=== PATIENT | female | born 1980 | race African-American/Black ===

== ENCOUNTER → 2016-10-13 | Day surgery (SDC) | payer BC ==
[~2016-10-13] MED LIST: FENTANYL PF 100 MCG/2 ML VIAL. ONE; IV RINGERS,LACTATED 1000ML 1,000 ML IV SCH; LIDOCAINE 2% PF Vial for OR 5 ML VIAL. ONE; PROPOFOL 20 ML IV ONE
[2016-10-13 06:58] LABS: NEG OBC UR NEG; POS OBC UR POS
[2016-10-13 07:45] VITALS: BP 132/86
== END | disposition home or self-care (01) ==
LOC: ENDOS 06:08
PROVIDERS: ATTEND Internal Medicine Gastroenterology
DX: K22.2 Esophageal obstruction (principal); K29.50 Unspecified chronic gastritis without bleeding; K21.9 Gastro-esophageal reflux disease without esophagitis; M19.90 Unspecified osteoarthritis, unspecified site; F32.9 Major depressive disorder, single episode, unspecified; Z72.89 Other problems related to lifestyle; Z96.60 Presence of unspecified orthopedic joint implant; Z87.39 Personal history of other diseases of the musculoskeletal system and connective tissue
CPT/HCPCS: 43235; 43450; 81025; J2704; J3010

== ENCOUNTER 2017-02-24 18:10 | Emergency (ER) | payer BC ==
[~2017-02-24] VITALS: Ht 165.1 cm; Wt 86.2 kg
[2017-02-24] MEDS ORDERED: IV NORMAL SALINE 1000ML BAG 1,000 ML IV SCH (18:54)
[2017-02-24] MEDS ORDERED: ONDANSETRON PF 4 MG/2 ML VIAL. IV ONE (19:00)
[2017-02-24 19:09] LABS: BASO % 1 % (0-3); EOS % 1 % (0-3); HEMATOCRIT 36.5 % (36.0-47.0); HEMOGLOBIN 12.2 g/dL (12.0-15.5); LYMPH # 3.1 x10^3/uL (1.0-4.8); LYMPH % 49 % (24-48); MEAN CORPUSCULAR HEMOGLOBIN 29 pg (25-35); MEAN CORPUSCULAR HGB CONC 34 g/dL (31-37); MEAN CORPUSCULAR VOLUME 86 fL (79-100); MONO % 11 % (0-9); NEUT % 38 % (31-73); PLATELET COUNT 258 x10^3/uL (140-400); RED BLOOD COUNT 4.24 x10^6/uL (3.50-5.40); RED CELL DISTRIBUTION WIDTH 14.7 % (11.5-14.5); WHITE BLOOD COUNT 6.3 x10^3/uL (4.0-11.0)
--- NOTE | 2017-02-24 19:12 | PHYS DOC ---
Past Medical History Past Medical History: No Pertinent History Past Surgical History: Other Additional Past Surgical Histo: right shoulder Alcohol Use: Occasionally Drug Use: None Adult General Chief Complaint Chief Complaint: DIZZY/LIGHT HEADED HPI HPI Patient is a 36 year old female who presents with complaint of dizziness and syncopal episode that took place prior to arrival. Patient states that she has been having trouble with coughing in the middle the night which has caused her to become lightheaded at times. Patient denies any history of known heart or lung problems. Patient does have history of acid reflux and is on Prilosec. Patient does admit that her symptoms have been worsening over the past several weeks. Patient denies any recent fever or illness. Patient states that earlier today she started having dizziness and felt like she is going to pass out. Patient states that she may have lost consciousness for "one or 2 seconds." Patient denies any injuries as a result of this episode. This episode made her very scared which is why she came to the emergency department for evaluation. Patient denies any associated substernal chest pain with these episodes. Review of Systems Review of Systems Constitutional: Denies fever or chills [] Eyes: Denies change in visual acuity, redness, or eye pain [] HENT: Denies nasal congestion or sore throat [] Respiratory: Cough [] Cardiovascular: Syncope, denies chest pain [] GI: Denies abdominal pain, nausea, vomiting, bloody stools or diarrhea [] : Denies dysuria or hematuria [] Musculoskeletal: Denies back pain or joint pain [] Integument: Denies rash or skin lesions [] Neurologic: Dizziness, denies headache, focal weakness or sensory changes [] Current Medications Current Medications Current Medications Medications (Trade) Dose Ordered Sig/[facility] Start Time Stop Time Status Last Admin Dose Admin Diazepam (Valium) 2 mg 1X ONCE 02/24/17 19:15 02/24/17 19:16 DC 02/24/17 19:26 2 MG Ondansetron HCl (Zofran) 4 mg 1X ONCE 02/24/17 19:00 02/24/17 19:06 DC 02/24/17 19:24 4 MG Sodium Chloride 1,000 ml @ 1,000 mls/hr Q1H 02/24/17 18:54 02/24/17 19:53 DC 02/24/17 19:26 1,000 MLS/HR Allergies Allergies Allergies Coded Allergies Type Severity Reaction Last Updated Verified No Known Drug Allergies 10/13/16 No Physical Exam Physical Exam Constitutional: Alert, afebrile, no acute distress. [] HENT: Normocephalic, atraumatic, bilateral external ears normal, oropharynx moist, no oral exudates, nose normal. [] Eyes: PERRLA, EOMI, conjunctiva normal, no discharge. [] Neck: Normal range of motion, no tenderness, supple, no stridor. [] Cardiovascular:Heart rate regular rhythm, no murmur [] Lungs & Thorax: Bilateral breath sounds clear to auscultation [] Abdomen: Bowel sounds normal, soft, no tenderness, no masses, no pulsatile masses. [] Skin: Warm, dry, no erythema, no rash. [] Back: No tenderness, no CVA tenderness. [] Extremities: No tenderness, no cyanosis, no clubbing, ROM intact, no edema. [] Neurologic: Alert and oriented X 3, normal motor function, normal sensory function, no focal deficits noted. [] Current Patient Data Vital Signs Vital Signs Date Time Temp Pulse Resp B/P (MAP) Pulse Ox O2 Delivery O2 Flow Rate FiO2 02/24/17 20:30 70 150/81 (104) 100 Room Air 02/24/17 20:00 17 02/24/17 18:25 98.4 98.4 Lab Values Laboratory Tests Test 02/24/17 18:51 02/24/17 19:20 White Blood Count 6.3 x10^3/uL (4.0-11.0) Red Blood Count 4.24 x10^6/uL (3.50-5.40) Hemoglobin 12.2 g/dL (12.0-15.5) Hematocrit 36.5 % (36.0-47.0) Mean Corpuscular Volume 86 fL (79-100) Mean Corpuscular Hemoglobin 29 pg (25-35) Mean Corpuscular Hemoglobin Concent 34 g/dL (31-37) Red Cell Distribution Width 14.7 % (11.5-14.5) H Platelet Count 258 x10^3/uL (140-400) Neutrophils (%) (Auto) 38 % (31-73) Lymphocytes (%) (Auto) 49 % (24-48) H Monocytes (%) (Auto) 11 % (0-9) H Eosinophils (%) (Auto) 1 % (0-3) Basophils (%) (Auto) 1 % (0-3) Neutrophils # (Auto) 2.4 x10^3uL (1.8-7.7) Lymphocytes # (Auto) 3.1 x10^3/uL (1.0-4.8) Monocytes # (Auto) 0.7 x10^3/uL (0.0-1.1) Eosinophils # (Auto) 0.1 x10^3/uL (0.0-0.7) Basophils # (Auto) 0.0 x10^3/uL (0.0-0.2) Sodium Level 142 mmol/L (136-145) Potassium Level 3.7 mmol/L (3.5-5.1) Chloride Level 105 mmol/L (98-107) Carbon Dioxide Level 28 mmol/L (21-32) Anion Gap 9 (6-14) Blood Urea Nitrogen 15 mg/dL (7-20) Creatinine 0.9 mg/dL (0.6-1.0) Estimated GFR (Cockcroft-Gault) 85.7 BUN/Creatinine Ratio 17 (6-20) Glucose Level 84 mg/dL (70-99) Calcium Level 9.4 mg/dL (8.5-10.1) Total Bilirubin 0.4 mg/dL (0.2-1.0) Aspartate Amino Transferase (AST) 20 U/L (15-37) Alanine Aminotransferase (ALT) 26 U/L (14-59) Alkaline Phosphatase 75 U/L (46-116) Creatine Kinase 200 U/L (26-192) H Creatine Kinase MB (Mass) 0.8 ng/mL (0.0-3.6) Creatine Kinase MB Relative Index 0.4 % (0-4) Troponin I Quantitative < 0.017 ng/mL (0.000-0.055) Total Protein 8.1 g/dL (6.4-8.2) Albumin 3.7 g/dL (3.4-5.0) Albumin/Globulin Ratio 0.8 (1.0-1.7) L Urine Collection Type Unknown Urine Color Yellow Urine Clarity Clear Urine pH 6.0 Urine Specific [place] >=1.030 Urine Protein Negative mg/dL (NEG-TRACE) Urine Glucose (UA) Negative mg/dL (NEG) Urine Ketones (Stick) Negative mg/dL (NEG) Urine Blood Small (NEG) Urine Nitrite Negative (NEG) Urine Bilirubin Negative (NEG) Urine Urobilinogen Dipstick 0.2 mg/dL (0.2 mg/dL) Urine Leukocyte Esterase Negative (NEG) Urine RBC 11-20 /HPF (0-2) Urine WBC Occ /HPF (0-4) Urine Squamous Epithelial Cells Few /LPF Urine Bacteria Few /HPF (0-FEW) Urine Mucus Marked /LPF Urine Opiates Screen Neg (NEG) Urine Methadone Screen Neg (NEG) Urine Barbiturates Neg (NEG) Urine Phencyclidine Screen Neg (NEG) Urine Amphetamine/Methamphetamine Neg (NEG) Urine Benzodiazepines Screen Neg (NEG) Urine Cocaine Screen Neg (NEG) Urine Cannabinoids Screen Neg (NEG) Urine Ethyl Alcohol Neg (NEG) Laboratory Tests 02/24/17 18:51 Laboratory Tests 02/24/17 18:51 EKG EKG Interpreted by me: Heart rate 65, sinus rhythm, normal intervals, normal axis, no acute ST/T-wave abnormalities present [] Radiology/Procedures Radiology/Procedures Not performed [] Course & Med Decision Making Course & Med Decision Making Pertinent Labs and Imaging studies reviewed. (See chart for details) The patient was given IV fluids, Valium, and Zofran in the emergency department. On reevaluation, patient's symptoms have improved at this time. I suspect that the patient may be having coughing fits due to uncontrolled acid reflux as this seems to be worsening at nighttime which would coincide with worsening reflux symptoms. Since blood work unremarkable with exception of mild dehydration. No evidence of infection present. After treatment the patient states that her symptoms are improving at this time. I spoke with Dr. Chaparro who was on-call for Dr. Young. She agreed with plan for treatment with meclizine and Carafate and follow-up in the next 2-[address] Young. Advised return emergency department for any worsening symptoms. Patient voiced understanding and in agreement with treatment plan. Dragon Disclaimer Dragon Disclaimer This electronic medical record was generated, in whole or in part, using a voice recognition dictation system. Departure Departure Impression: Primary Impression: Dehydration Additional Impressions: Dizziness Acid reflux Disposition: 01 HOME, SELF-CARE Condition: IMPROVED Referrals: EDA YOUNG MD (PCP) Patient Instructions: Dehydration, Adult, Dizziness, Gastroesophageal Reflux Disease, Adult Additional Instructions: Follow-up with your primary doctor in the next 2-3 days. Return to the emergency department for any worsening symptoms. Scripts Meclizine Hcl (MECLIZINE HCL) 25 Mg Tablet 1 TAB PO PRN TID Y for DIZZINESS, #30 TAB Prov: JUSTIN VILLARREAL MD 02/24/17 Sucralfate (CARAFATE) 1 Gm Tablet 1 TAB PO QID, #120 TAB 0 Refills Prov: JUSTIN VILLARREAL MD 02/24/17 Problem Qualifiers Additional Impressions: Acid reflux Esophagitis presence: esophagitis presence not specified Qualified Codes: K21.9 - Gastro-esophageal reflux disease without esophagitis JUSTIN VILLARREAL MD Feb 24, 2017 19:12
[2017-02-24 19:29] LABS: CALCIUM 9.4 mg/dL (8.5-10.1); CREATININE 0.9 mg/dL (0.6-1.0); GFR 85.7; POTASSIUM 3.7 mmol/L (3.5-5.1)
[2017-02-24 19:41] LABS: ALBUMIN 3.7 g/dL (3.4-5.0); ALBUMIN/GLOBULIN RATIO 0.8 (1.0-1.7); TOTAL BILIRUBIN 0.4 mg/dL (0.2-1.0); TOTAL PROTEIN 8.1 g/dL (6.4-8.2)
[2017-02-24 20:02] LABS: BILIRUBIN,URINE NEGATIVE (NEG); GLUCOSE,URINE NEGATIVE (NEG); NITRITE,URINE NEGATIVE (NEG); PROTEIN,URINE NEGATIVE (NEG-TRACE); UROBILINOGEN,URINE 0.2 mg/dL (0.2 mg/dL)
[2017-02-24 20:07] LABS: CKMB MASS 0.8 ng/mL (0.0-3.6)
[2017-02-24 20:10] LABS: BARBITURATES NEG (NEG); BENZODIAZEPINES NEG (NEG); CANNABINOIDS NEG (NEG); COCAINE NEG (NEG); METHADONE NEG (NEG); OPIATES NEG (NEG); PHENCYCLIDINE NEG (NEG)
[2017-02-24 20:21] LABS: BACTERIA,URINE FEW /HPF (0-FEW); SQUAMOUS EPITHELIAL CELL,UR FEW /LPF; WBC,URINE OCC /HPF (0-4)
[2017-02-24 20:30] VITALS: BP 150/81
[2017-02-24] MEDS ORDERED: SUCR1TAB35 PO (20:50)
[2017-02-24] MEDS ORDERED: MECL25TA3 PO (20:50)
--- NOTE | 2017-02-25 08:23 | EKG ---
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
== END 2017-02-24 21:00 | disposition home or self-care (01) ==
LOC: ER 18:10
DX: E86.0 Dehydration (principal); K21.9 Gastro-esophageal reflux disease without esophagitis; R42 Dizziness and giddiness
CPT/HCPCS: 36415; 80053; 80305; 80320; 81001; 82553; 84484; 85027; 93005; 96361; 96374; 96375; 99285; J2405; J3360; J7030; G0481

== ENCOUNTER 2017-08-25 20:36 | Emergency (ER) | payer BC | END 2017-08-25 21:03 | disposition home or self-care (01) | LOC: ER 20:36 | DX: L03.012 Cellulitis of left finger (principal) | CPT/HCPCS: 99284; 99284-25 ==

== ENCOUNTER 2020-04-05 14:31 | Emergency (ER) | payer BC ==
[~2020-04-05] VITALS: Ht 160 cm; Wt 84.7 kg
[~2020-04-05 14:31] MED LIST changes: +CEPH-264 PO; -FENTANYL PF 100 MCG/2 ML VIAL. ONE; -IV RINGERS,LACTATED 1000ML 1,000 ML IV SCH; -LIDOCAINE 2% PF Vial for OR 5 ML VIAL. ONE; +MECL-75 PO; +METH4TAB2 PO; +MTH/1CAP PO; -PROPOFOL 20 ML IV ONE; +SUCR1TAB35 PO
--- NOTE | 2020-04-05 14:56 | PHYS DOC ---
Past Medical History Past Medical History: No Pertinent History Past Surgical History: Other Additional Past Surgical Histo: R shoulder Smoking Status: Current Every Day Smoker Alcohol Use: None Drug Use: None General Adult EDM: Chief Complaint: SYNCOPE HPI: HPI: Patient is a 39 year old FEMALE who presents with had an laryngeal scope this morning at . She states she did not have any sedation in the use lidocaine and went up through her nose down to her stomach. She states that they would call her with the test results. She states she had the laryngeal scope done because of having trouble swallowing of which they think is related to acid reflux. She states that she got to work after the procedure and became dizzy and nauseated and she states that she may have passed out for 2 seconds but caught herself before hitting the floor. She states she did not hit her head. She states she still feels nauseated and now she just has a frontal headache. This is not the worst headache she is ever felt. She rates it a 7 out of 10 and nonradiating. No exacerbating factors. she states she did not take any medications. She states she is still nauseated. She states she is only had a little bit of water and a small solid since she had the procedure done. Patient denies dizziness at this time, vomiting, diarrhea, chest pain, shortness of air, abdominal pain, cough, dysuria symptoms, fever, vision changes, numbness or tingling. Review of Systems: Review of Systems: Constitutional: Denies fever or chills. [] Eyes: Denies change in visual acuity. [] HENT: Denies nasal congestion or sore throat. [] Respiratory: Denies cough or shortness of breath. [] Cardiovascular: Denies chest pain or edema. [] GI: Denies abdominal pain. + nausea, denies vomiting, bloody stools or d iarrhea. [] : Denies dysuria. [] Musculoskeletal: Denies back pain or joint pain. [] Integument: Denies rash. [] Neurologic: Frontal headache, syncope, denies focal weakness or sensory changes. [] Endocrine: Denies polyuria or polydipsia. [] Lymphatic: Denies swollen glands. [] Psychiatric: Denies depression or anxiety. [] Heart Score: Risk Factors: Risk Factors: DM, Current or recent (<one month) smoker, HTN, HLP, family history of CAD, obesity. Risk Scores: Score 0 - 3: 2.5% MACE over next 6 weeks - Discharge Home Score 4 - 6: 20.3% MACE over next 6 weeks - Admit for Clinical Observation Score 7 - 10: 72.7% MACE over next 6 weeks - Early Invasive Strategies Allergies: Allergies: Allergies Coded Allergies Type Severity Reaction Last Updated Verified No Known Drug Allergies 10/13/16 No Physical Exam: PE: Constitutional: Well developed, well nourished, no acute distress, non-toxic appearance. [] HENT: Normocephalic, atraumatic, bilateral external ears normal, oropharynx moist, no oral exudates, nose normal. [] Eyes: PERRLA, EOMI, conjunctiva normal, no discharge. [] Neck: Normal range of motion, no tenderness, supple, no stridor. [] Cardiovascular:Heart rate regular rhythm, no murmur [] Lungs & Thorax: Bilateral breath sounds clear to auscultation [] Abdomen: Bowel sounds normal, soft, no tenderness, no masses, no pulsatile masses. [] Skin: Warm, dry, no erythema, no rash. [] Back: No tenderness, no CVA tenderness. [] Extremities: No tenderness, no cyanosis, no clubbing, ROM intact, no edema. [] Neurologic: Alert and oriented X 3, normal motor function, normal sensory function, no focal deficits noted. [] Psychologic: Affect normal, judgement normal, mood normal. Normal Physical Exam [] EKG: EK and read by Dr Lunsford as NSR and no STEMI[] Radiology/Procedures: Radiology/Procedures: [] Impression: [facility] [address] [place] [address] IMAGING REPORT Signed PATIENT: CARISSA WADSWORTH ACCOUNT: [id number] : 1980 LOCATION: ER AGE: 39 SEX: F EXAM STATUS: REG ER ORD. PHYSICIAN: YASH LOZANO APRN REASON: EGD TODAY, HEADACHE, SYNCOPE PROCEDURE: CT HEAD AND MAXILLOFACIAL WO Exam: CT head and maxillofacial INDICATION: EGD today, headache TECHNIQUE: Sequential axial images through the head and maxillofacial were obtained without the administration of IV contrast. Comparisons: None FINDINGS: Head: No focal parenchymal lesion or hemorrhage is identified. There is no midline shift or sulcal effacement. No acute vascular territory infarction is identified. Farrar-white distinction is preserved. The ventricular system is within normal limits without compression hydrocephalus. The basal cisterns are well maintained. Face: Globes and intraorbital contents are normal. The visualized portions of the paranasal sinuses and mastoid air cells are well-pneumatized. No acute fractures. IMPRESSION: 1. No acute intracranial abnormality. 2. No acute traumatic injury identified at the face. Exposure: One or more of the following in the visualized dose reduction techniques were utilized for this examination: 1. Automated exposure control 2. Adjustment of the MA and/or KV according to patient size Use of iterative of reconstructive technique Electronically signed by: Jaswinder Rashid MD (04/05/2020 4:02 PM) [id number] DICTATED and SIGNED BY: JASWINDER RASHID MD DATE: 04/05/20 1602 [facility] [address] [place] [address] IMAGING REPORT Signed PATIENT: CARISSA WADSWORTH ACCOUNT: [id number] : 1980 LOCATION: ER AGE: 39 SEX: F EXAM STATUS: REG ER ORD. PHYSICIAN: YASH LOZANO APRN REASON: SYNCOPE, EGD TODAY PROCEDURE: PORTABLE CHEST 1V INDICATION: Reason: SYNCOPE, EGD TODAY / Spl. Instructions: / History: COMPARISON: None. FINDINGS: Single view of chest obtained. Degenerative changes of the right shoulder with some suspected subchondral cyst formation. Cardiac silhouette is unremarkable. No focal airspace consolidation or pulmonary edema. IMPRESSION: * No focal airspace consolidation or edema. Electronically signed by: Wiliam Quezada MD (04/05/2020 3:40 PM) [id number] DICTATED and SIGNED BY: WILIAM QUEZADA MD DATE: 04/05/20 1540 Course & Med Decision Making: Course & Med Decision Making Pertinent Labs and Imaging studies reviewed. (See chart for details) HPI. Alert and oriented x4. Ambulatory with a steady gait. Speaks in full complete sentences. Abdomen is soft and nontender. Uvula midline. Lungs are clear to auscultation all lobes. Vital signs within normal limits. Skin pink warm and dry. Patient is moving all extremities with equal strengths. Patient is exam is negative. She remains alert and oriented and stable. Blood work is stable. EKG is stable. I have discussed this patient with Dr. Lunsford and the care plan. Patient is discharged home and she should follow-up with the doctor that perform the procedure or her primary care. [] Dragon Disclaimer: Dragon Disclaimer: This electronic medical record was generated, in whole or in part, using a voice recognition dictation system. NIHSS Stroke Scale NIH Stroke Scale: NIH Stroke Scale Response (Comments) Value Level of Consciousness: 0 Alert/Responsive 0 LOC Questions: 0 Answers both correctly 0 LOC Commands: 0 Performs both tasks 0 Best Gaze: 0 Normal 0 Visual: 0 No visual loss 0 Facial Palsy: 0 Normal, symmetrical 0 Motor - Left Arm 0 No drift 0 Motor - Right Arm 0 No drift 0 Motor - Left Leg 0 No drift 0 Motor: Right Leg 0 No drift 0 Limb Ataxia: 0 Absent 0 Sensory: 0 No loss 0 Best Language: 0 Normal 0 Dysathria: 0 Normal 0 Extinction and Inattention: 0 Normal 0 Total 0 Departure Departure Impression: Primary Impression: Syncope Qualified Codes: R55 - Syncope and collapse Disposition: 01 HOME, SELF-CARE Condition: STABLE Referrals: UNKNOWN PCP NAME (PCP) Patient Instructions: Syncope, Vagal Nerve Stimulation Additional Instructions: Follow-up with your primary care physician or your gastrointestinal doctor that did your procedure. Drink plenty of fluids. Slowly increase your diet. Justicifation of Admission Dx: Justifications for Admission: Justification of Admission Dx: N/A YASH LOZANO MOLD LAMINATOR Apr 05, 2020 14:56
[2020-04-05] MEDS ORDERED: IV NORMAL SALINE 1000ML BAG 1,000 ML IV ONE (15:00)
[2020-04-05] MEDS ORDERED: PROCHLORPERAZINE 10 MG/2 ML VIAL. IV ONE (15:00)
[2020-04-05] MEDS ORDERED: ONDANSETRON PF 4 MG/2 ML VIAL. IVP ONE (15:00)
[2020-04-05] MEDS ORDERED: FAMOTIDINE 20 MG/2 ML VIAL IVP ONE (15:00)
--- NOTE | 2020-04-05 15:43 | RAD ---
INDICATION: Reason: SYNCOPE, EGD TODAY / Spl. Instructions: / History: COMPARISON: None. FINDINGS: Single view of chest obtained. Degenerative changes of the right shoulder with some suspected subchondral cyst formation. Cardiac silhouette is unremarkable. No focal airspace consolidation or pulmonary edema. IMPRESSION: * No focal airspace consolidation or edema. Electronically signed by: Wiliam Dempsey MD (04/05/2020 3:40 PM) [id number]
[2020-04-05 15:59] LABS: BILIRUBIN,URINE NEGATIVE (NEG); CLARITY,URINE CLEAR; COLOR,URINE YELLOW; NITRITE,URINE NEGATIVE (NEG); PH,URINE 6.5 (<5.0-8.0); PROTEIN,URINE NEGATIVE (NEG-TRACE)
[2020-04-05 16:05] LABS: AMPHETAMINE/METHAMPHETAMINE NEG (NEG); BARBITURATES NEG (NEG); BENZODIAZEPINES NEG (NEG); CANNABINOIDS NEG (NEG); COCAINE NEG (NEG); METHADONE NEG (NEG); OPIATES NEG (NEG); PHENCYCLIDINE NEG (NEG)
--- NOTE | 2020-04-05 16:05 | RAD ---
Exam: CT head and maxillofacial INDICATION: EGD today, headache TECHNIQUE: Sequential axial images through the head and maxillofacial were obtained without the administration of IV contrast. Comparisons: None FINDINGS: Head: No focal parenchymal lesion or hemorrhage is identified. There is no midline shift or sulcal effacement. No acute vascular territory infarction is identified. Farrar-white distinction is preserved. The ventricular system is within normal limits without compression hydrocephalus. The basal cisterns are well maintained. Face: Globes and intraorbital contents are normal. The visualized portions of the paranasal sinuses and mastoid air cells are well-pneumatized. No acute fractures. IMPRESSION: 1. No acute intracranial abnormality. 2. No acute traumatic injury identified at the face. Exposure: One or more of the following in the visualized dose reduction techniques were utilized for this examination: 1. Automated exposure control 2. Adjustment of the MA and/or KV according to patient size Use of iterative of reconstructive technique Electronically signed by: Jaswinder Hernandez MD (04/05/2020 4:02 PM) [id number]
[2020-04-05 16:13] LABS: BASO % 1 % (0-3); EOS % 1 % (0-3); HEMATOCRIT 35.9 % (36.0-47.0); HEMOGLOBIN 12.2 g/dL (12.0-15.5); LYMPH # 2.1 x10^3/uL (1.0-4.8); LYMPH % 38 % (24-48); MEAN CORPUSCULAR HEMOGLOBIN 30 pg (25-35); MEAN CORPUSCULAR HGB CONC 34 g/dL (31-37); MEAN CORPUSCULAR VOLUME 89 fL (79-100); MONO # 0.7 x10^3/uL (0.0-1.1); MONO % 12 % (0-9); NEUT # 2.7 x10^3/uL (1.8-7.7); NEUT % 48 % (31-73); PLATELET COUNT 264 x10^3/uL (140-400); RED BLOOD COUNT 4.04 x10^6/uL (3.50-5.40); RED CELL DISTRIBUTION WIDTH 14.4 % (11.5-14.5); WHITE BLOOD COUNT 5.6 x10^3/uL (4.0-11.0)
[2020-04-05 16:18] LABS: BACTERIA,URINE MODERATE /HPF (0-FEW); RBC,URINE 20-40 /HPF (0-2); SQUAMOUS EPITHELIAL CELL,UR MOD /LPF
[2020-04-05 17:10] VITALS: BP 112/53
[2020-04-05 17:15] LABS: ALBUMIN 3.6 g/dL (3.4-5.0); ALBUMIN/GLOBULIN RATIO 0.9 (1.0-1.7); CALCIUM 8.8 mg/dL (8.5-10.1); CREATININE 0.8 mg/dL (0.6-1.0); GFR 96.6; POTASSIUM 3.8 mmol/L (3.5-5.1); TOTAL BILIRUBIN 0.3 mg/dL (0.2-1.0); TOTAL PROTEIN 7.8 g/dL (6.4-8.2)
--- NOTE | 2020-04-06 04:50 | EKG ---
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
== END 2020-04-05 17:42 | disposition home or self-care (01) ==
LOC: ER 14:31
DX: R55 Syncope and collapse (principal); R51 Headache; R11.0 Nausea; F17.200 Nicotine dependence, unspecified, uncomplicated; Z98.890 Other specified postprocedural states
CPT/HCPCS: 36415; 70450; 70486; 71045; 80053; 80307; 81001; 82962; 84484; 85025; 87086; 93005; 96361; 96374; 96375; 99285; J0780; J3490; J7030